=== PATIENT | male | born 1935 | race Caucasian/White ===

== ENCOUNTER 2023-11-07 22:45 | Inpatient (IN) | payer OTHER ==
[~2023-11-07] VITALS: Ht 177.8 cm; Wt 58.0 kg
[2023-11-07 23:26] LABS: Albumin, Blood 2.9 g/dL (3.4-5.0); Albumin/Globulin Ratio 1.2 (0.8-1.8); Bilirubin, Total 5.6 mg/dL (0.1-1.0); Bun/Creatinine Ratio 31.7 (12.0-20.0); Calcium, Blood 7.3 mg/dL (8.5-10.1); Creatinine, Blood 1.39 mg/dL (0.60-1.20); Globulin, Blood 2.5 g/dL (2.2-4.0); Potassium, Blood 2.8 mmol/L (3.5-5.5); Total Protein, Blood 5.4 g/dL (6.4-8.2)
[2023-11-07] MEDS ORDERED: Potassium Chloride 20 MEQ TabCR PO ONE (23:45)
[2023-11-07] MEDS ORDERED: NS 1,000 ML IV SCH (23:50)
[2023-11-07] MEDS ORDERED: Potassium Chl 20MEQ/Water100ML 100 ML IV ONE (23:50)
[2023-11-08] VITALS (13 sets, daily range): BP systolic 89–118; BP diastolic 51–64
[2023-11-08 00:16] LABS: Magnesium, Blood 2.1 mg/dL (1.6-2.4)
[2023-11-08 00:51] LABS: Hematocrit 19.1 % (37.0-53.0); Hemoglobin 6.2 g/dL (13.5-17.5); Mean Corpuscular HGB 29.5 pg (26.0-34.0); Mean Corpuscular HGB Conc 32.5 g/dL (31.5-36.5); Mean Corpuscular Volume 91 fL (80-100); RDW Coefficient Variation 18.3 % (11.7-14.2); RDW Standard Deviation 58.5 fL (35.1-46.3)
[2023-11-08 01:00] LABS: Thyroid Stimulating Hormone 1.91 uIU/mL (0.360-4.800)
[2023-11-08 01:06] LABS: NRBC ABSOLUTE 0.74 K/mm3 (0.00-0.02); NRBC Auto 1.7 /100 WBC (0.0-0.2); White Blood Cell Count 43.35 K/mm3 (4.00-11.30)
[2023-11-08 01:08] LABS: Platelet Count 11 K/mm3 (150-400)
[2023-11-08 01:08] LABS: Influenza A, PCR NEGATIVE (NEGATIVE); Influenza B, PCR NEGATIVE (NEGATIVE); Resp Syncytial Virus, PCR NEGATIVE (NEGATIVE); SARS-Cov-2 (COVID-19) PCR, MMC NEGATIVE (NEGATIVE)
[2023-11-08 01:47] LABS: BAND PERCENT MAN 1 % (0-8); BASOPHILS PERCENT MAN 0 % (0-2); BLASTS PERCENT MAN 25 % (0-0); EOSINOPHILS PERCENT MAN 0 % (0-6); LYMPHOCYTES % ATYPICAL MANUAL 3 % (0-0); LYMPHOCYTES PERCENT MAN 9 % (21-46); METAMYELOCYTE ABSOLUTE MAN 3.03 K/mm3 (0.00-0.00); METAMYELOCYTE PERCENT MAN 7 % (0-0); MONOCYTES PERCENT MAN 21 % (4-13); MYELOCYTE ABSOLUTE MAN 6.93 K/mm3 (0.00-0.00); MYELOCYTE PERCENT MAN 16 % (0-0); PROMYELOCYTE ABSOLUTE MAN 0.43 K/mm3 (0.00-0.00); PROMYELOCYTE PERCENT MAN 1 % (0-0); SEG NEUTROPHILS PERCENT MAN 17 % (41-73); TOTAL CELLS COUNTED 100
[2023-11-08] MEDS ORDERED: NS 500 ML IV SCH (03:10)
[2023-11-08] MEDS ORDERED: Lactated Ringer's 1,000 ML IV SCH (04:00)
[2023-11-08] MEDS ORDERED: OLANZapine 10 MG Vial IV ONE (07:30)
[2023-11-08 08:16] LABS: Hematocrit 22.7 % (37.0-53.0); Hemoglobin 7.4 g/dL (13.5-17.5); Mean Corpuscular HGB 29.4 pg (26.0-34.0); Mean Corpuscular HGB Conc 32.6 g/dL (31.5-36.5); Mean Corpuscular Volume 90 fL (80-100); RDW Coefficient Variation 17.7 % (11.7-14.2); RDW Standard Deviation 56.1 fL (35.1-46.3); Red Blood Cell Count 2.52 M/mm3 (4.30-5.90)
[2023-11-08 08:25] LABS: NRBC ABSOLUTE 0.99 K/mm3 (0.00-0.02)
[2023-11-08 08:27] LABS: Albumin, Blood 2.7 g/dL (3.4-5.0); Anion Gap 13 mmol/L (3-11); Blood Urea Nitrogen 44 mg/dL (8-24); Bun/Creatinine Ratio 32.6 (12.0-20.0); CO2, Blood 26 mmol/L (21-32); Chloride, Blood 104 mmol/L (98-108); Creatinine, Blood 1.35 mg/dL (0.60-1.20); Glomerular Filtration Rate 51 (60-); Glucose, Blood 118 mg/dL (70-99); Phosphorus, Blood 4.8 mg/dL (2.5-4.9); Potassium, Blood 3.1 mmol/L (3.5-5.5); Sodium, Blood 140 mmol/L (136-145)
[2023-11-08 08:29] LABS: Platelet Count 17 K/mm3 (150-400)
[2023-11-08] MEDS ORDERED: Enoxaparin 40 MG/0.4 ML SYR SC SCH (09:00)
[2023-11-08 09:29] LABS: BAND PERCENT MAN 7 % (0-8); BASOPHILS PERCENT MAN 0 % (0-2); BLASTS PERCENT MAN 24 % (0-0); EOSINOPHILS PERCENT MAN 0 % (0-6); LYMPHOCYTES ABSOLUTE MAN 1.99 K/mm3 (0.84-5.20); LYMPHOCYTES PERCENT MAN 4 % (21-46); METAMYELOCYTE ABSOLUTE MAN 0.99 K/mm3 (0.00-0.00); METAMYELOCYTE PERCENT MAN 2 % (0-0); MONOCYTES ABSOLUTE MAN 16.93 K/mm3 (0.16-1.47); MONOCYTES PERCENT MAN 34 % (4-13); MYELOCYTE ABSOLUTE MAN 7.96 K/mm3 (0.00-0.00); MYELOCYTE PERCENT MAN 16 % (0-0); NEUTROPHILS ABSOLUTE MAN 9.46 K/mm3 (1.96-9.15); PROMYELOCYTE ABSOLUTE MAN 0.49 K/mm3 (0.00-0.00); PROMYELOCYTE PERCENT MAN 1 % (0-0); SEG NEUTROPHILS PERCENT MAN 12 % (41-73); TOTAL CELLS COUNTED 100
[2023-11-08] MEDS ORDERED: Potassium Chloride 40 MEQ in NS 250 ML IV ONE (09:35)
[2023-11-08] MEDS ORDERED: OLANZapine ODT 5 MG Tab MM PRN (15:40)
--- NOTE | 2023-11-08 17:34 | NUR ---
SHIFT SUMMARY: PT IS AN A&OX2-3 MALE HERE FOR ANEMIA; RECEIVING BLOOD PRODUCTS. HE CAME TO ME THIS MORNING FROM THE FLOOR AFTER HE DISPLAYED AGGRESSIVE BEHAVIOR WITH STAFF. WHEN PATIENT ARRIVED TO THE SPECIAL CARE UNIT HE WAS CALM AND REMAINED CALM, PLEASANT, AND COOPERATIVE THE ENTIRE SHIFT. HE HASN'T BEEN IMPULISVE OR TRYING TO GET OUT OF BED; AVASURE CAMERA IN USE. PATIENT CONFUSES, FLIGHTS OF IDEAS, CAN RECALL CURRENT EVENTS; PEOPLE. HE VOICES UNDERSTANDING WITH HIS CARE. HAD A LONG DISCUSSING WITH HIM AND HIS CAREGIVER TJ THAT CAME BY THIS AFTERNOON ABOUT THE PATIENTS CONDITION. PATIENT DOES LIVE ALONE IN AN APARTMENT; CAREGIVER TJ THROUGH [facility] ASSISTS WITH THE PATIENT'S NEEDS. PATIENT DOES HAVE LACK OF MOBILITY; HE CANNOT/WILL NOT BEND AT HIS HIP ON THE L SIDE. PATIENT GETS AROUD WITH A 4 WHEEL WALKER AT HOME, BUT WITH WORKING WITH THE PATIENT TODAY AND ASSISTING HIM TO THE BEDSIDE COMMODE TODAY IT TAKES MAXIMUM 2-3 EFFORTS TO GET HIM UP AND ON THE COMMODE; AGAIN HE DOESN'T BEND AT THE HIP SO HE DOES NOT SIT; HE LEANS BACK AND KEEPS HIS L LEG STRAIGHT WHICH IS UNSAFE. DISCUSSED AND CAME TO AN UNDERSTANDING WITH THE PATIENT AND CAREGIVER THAT STAYING IN BED IS SAFEST AT THIS TIME; FALL RISK+CRITICALLY LOW PLTS. PATIENT ALSO EXPRESSES THAT HE DOES NOT WISH TO CONTINUE GETTING BLOOD TRANSFUSIONS. HE WISHES TO NATURALLY. PATIENT RECEIVED 2 UNITS OF PRBC TODAY, 1000ML OF LR, AND IV POTASSIUM CHLORIDE;TOLERATED WELL. HE IS IN BED, CALL LIGHT WITHIN REACH, NO SIGNS OR SYMPTOMS OF DISTRESS, PLAN OF CARE ONGOING.
[2023-11-09 02:47] VITALS: BP 99/53
--- NOTE | 2023-11-09 05:15 | NUR ---
SHIFT SUMMARY PATIENT IS STUBBORN AT TIMES AND OTHER TIMES EASILY DIRECTABLE. STILL UNABLE TO GET THE BED WEIGHT ZEORED, HE STANDS FOR NOT LONG ENOUGH. HE REFUSED THE PRN ZYPREXA I OFFERED AT HS.
[2023-11-09 06:37] LABS: Hematocrit 23.7 % (37.0-53.0); Hemoglobin 7.9 g/dL (13.5-17.5); Mean Corpuscular HGB Conc 33.3 g/dL (31.5-36.5); Mean Corpuscular Volume 90 fL (80-100); RDW Coefficient Variation 17.5 % (11.7-14.2); RDW Standard Deviation 55.8 fL (35.1-46.3); RETICULOCYTE ABSOLUTE 0.0921 M/mm3 (0.0200-0.1100); Red Blood Cell Count 2.63 M/mm3 (4.30-5.90)
[2023-11-09 06:55] LABS: NRBC ABSOLUTE 1.15 K/mm3 (0.00-0.02); NRBC Auto 2.5 /100 WBC (0.0-0.2); White Blood Cell Count 45.19 K/mm3 (4.00-11.30)
[2023-11-09 06:57] LABS: Platelet Count 15 K/mm3 (150-400)
[2023-11-09 07:06] LABS: Albumin, Blood 2.6 g/dL (3.4-5.0); Bilirubin, Total 5.1 mg/dL (0.1-1.0); Bun/Creatinine Ratio 29.9 (12.0-20.0); Calcium, Blood 7.6 mg/dL (8.5-10.1); Creatinine, Blood 1.37 mg/dL (0.60-1.20); Globulin, Blood 2.6 g/dL (2.2-4.0); Potassium, Blood 3.4 mmol/L (3.5-5.5); Total Protein, Blood 5.2 g/dL (6.4-8.2)
[2023-11-09 07:48] VITALS: BP 112/59
[2023-11-09 08:11] LABS: BAND PERCENT MAN 4 % (0-8); BASOPHILS PERCENT MAN 0 % (0-2); BLASTS PERCENT MAN 18 % (0-0); EOSINOPHILS PERCENT MAN 0 % (0-6); LYMPHOCYTES ABSOLUTE MAN 9.94 K/mm3 (0.84-5.20); LYMPHOCYTES PERCENT MAN 22 % (21-46); METAMYELOCYTE ABSOLUTE MAN 1.35 K/mm3 (0.00-0.00); METAMYELOCYTE PERCENT MAN 3 % (0-0); MONOCYTES ABSOLUTE MAN 6.77 K/mm3 (0.16-1.47); MONOCYTES PERCENT MAN 15 % (4-13); MYELOCYTE ABSOLUTE MAN 6.77 K/mm3 (0.00-0.00); MYELOCYTE PERCENT MAN 15 % (0-0); SEG NEUTROPHILS PERCENT MAN 23 % (41-73); TOTAL CELLS COUNTED 100
[2023-11-09] MEDS ORDERED: Potassium Chl 20MEQ/Water100ML 100 ML IV STA (08:16)
[2023-11-09 15:18] VITALS: BP 124/59
[2023-11-09] MEDS ORDERED: Acetaminophen 650 MG Supp PR PRN (18:05)
[2023-11-09] MEDS ORDERED: Morphine Sulfate 20 MG/1ML 1 ML Oral Syringe SL PRN ×2 (18:05→20:40)
[2023-11-09] MEDS ORDERED: Atropine Sulfate 1% Opth Soln 2ML BTL SL PRN (18:05)
[2023-11-09] MEDS ORDERED: LORazepam 1 MG Tab PO PRN (18:05)
[2023-11-09] MEDS ORDERED: Scopolamine Hydrobromide Patch TOP PRN (18:05)
--- NOTE | 2023-11-09 18:10 | NUR ---
GOALS OF CARE - STATUS CHANGE TO COMFORT CARE MET WITH PT, WHOM LIKES TO BE ADDRESSED "ALEJANDRA" AND HIS CAREGIVER TJ. PT LYING CORNER TO CORNER IN HOSPITAL BED AT 45 DEGREE ANGLE. ALEJANDRA IS ALERT, ORIENTED TO SELF, CAREGIVER AND BEING IN THE HOSPITAL. HE IS ENGAGING IN CONVERSATION WITH RELEVANT INPUT. PT REQUESTS HOSPICE CARE AND WANTS TO START IT "NOW". ALEJANDRA STATED, "I'M ALEVISM. I KNOW WHERE I'M GOING. I KNOW DAVID. I'M NOT AFRAID TO ." PT TALKED ABOUT HIS TIME IN THE [employer] AND THE [employer]. "MY TIME IN THE [employer] WAS MY [employer]. 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 [employer] REPORTS ALEJANDRA IS VERY RIGID IN HIS ROUTINE AT HOME. HE DOES NOT BELIEVE IN MEDICATIONS OR CHEMICALS. CLEANING AT HOME IS DONE WITH WATER ONLY, EXCEPT DISHES, USES DISHSOAP. ALEJANDRA CONFIRMS CLEANING INSTRUCTIONS. PRIOR TO ADMISSION, PT AMBULATED WITH A WALKER. CG REPORTS FATIGUE GREATLY INCREASED THE LAST COUPLE OF MONTHS. [employer] SHOPPING 2 MTS AGO WOULD TAKE APX 1-2 HRS. COUPLE OF WEEKS AGO, SHOPPING WAS GREATER THAN 3 HRS. ORAL INTAKE HAS STEADILY DECLINED. LAST FULL MEAL WAS GREATER THAN 2 MTS AGO. 1 MTH AGO ORAL INTAKE APX 40-50%. ALEJANDRA STATED HE WOULD LIKE TJ TO BE HIS DECESION MAKER WHEN HE IS NOT ABLE TO SPEAK FOR HIMSELF. HE TOLD TJ AND THIS PC RN, HE WANTS HIS "FLUSH MY ASHES DOWN THE TOILET. IT ALL GOES TO THE SEWERS ANYWAY. THE OCEAN IS THE LARGEST HIDE SALTER THERE IS. DON'T PUT ME IN A VASE AND KEEP ME FOREVER. THAT'S NOT ME. WHEN I'M IT'S JUST A BODY." THIS PC RN UPDATED DR. REDDY AND DR. TAYLOR ABOUT VISIT WITH PT STATED ABOVE. ORDERS RCV'D TO START COMFORT CARE. MARYCARMEN CRISTOBAL NOTIFIED BY PHONE OF REQ TO D/C TO [facility]. PRIMARY RN UPDATED WITH ABOVE STATED INFO. PC TO REMAIN AVAILABLE NEEDED.
--- NOTE | 2023-11-09 18:50 | NUR ---
SHIFT SUMMARY: PATIENT HAS BEEN PLEASANT AND COOPEARTIVE WITH CARE; HASN'T ATTEMPTED ANY OUT OF BED SAFETY; BEEN MAKING NEEDS KNOWN. NOT EATING AND DRINKING VERY LITTLE. VISITED ROHINI EASTON WITH HIS LABOR ECONOMICS TEACHER TODAY AND DECIDED TO PLACE HIM ON HOSPICE/COMFORT CARE. HE IS SLEEPING-RESP EVEN AND UNLABORED;LYING ON R SIDE;CONDOM CATH IN PLACE, CALL LIGHT WITHIN REACH, BED ALARM ON AND CAMERA GOING. NO SIGNS OR SYMPTOMS OF DISTRESS, PLAN OF CARE ONGOING. PHARMACY CALLED REGARDING CONCERNS WITH ROXANOL DOSING STARTING AT 5MG-20MG; EXPRESSED TO THE PHARMACIST THE IT IS INITATED FOR COMFORT CARE AND THAT STARTING AT 5 MG AND SEEING HOW PATIENT RESPONSES TO DOSING IS FOLLOWED AND ADJUST NEEDED. SHE STATES THAT PER PALLATIVE COMFORT MEASURES FOR OPIATE NIAVE PATIENT THE STARTING DOSE WOULD BE 2MG; I SHARED THAT I HAVE NEVER GIVEN A 2 MG DOSE OF ROXANOL ON A COMFORT CARE PATIENT BEFORE AND THAT TYPICALLY COMFORT CARE ROXANOL PROTOCOL DOSING STARTS AT 5MG. PHARMACIST EXPRESSES THAT THEY DO NOT FEEL COMFORTABLE WITH THAT DOSING; I ADVISED THE PHARMACIST TO CALL THE DOCTOR/PALLATIVE CARE RN TO DISCUSS CONCERNS IF THEY DO NOT FEEL COMFORTABLE WITH ORDERED DOSING.
--- NOTE | 2023-11-10 06:33 | NUR ---
SHIFT SUMMARY PATIENT WAS ABLE TO SLEEP MOST OF THE NIGHT. HE DENIED NEEDING ANY PRN MEDS. CONDOM CATH WORKED WELL.
[2023-11-10] MEDS ORDERED: Morphine Sulfate 20 MG/1ML 1 ML Oral Syringe SL PRN (13:10)
--- NOTE | 2023-11-10 18:51 | NUR ---
SUMMARY- PT A/O X3, FOLLOWS COMMANDS. NO ATTEMPTS TO GET OOB UNATENDED. DC'D RETAIL SECURITY PROFESSIONAL. MEDICATED X2 WITH ROXONOL FOR NECK PAIN WITH GOOD EFFECT. PT DRINGING WATER, VOIDS USING CONDOM CATH. IRRITABLE AT TIMES. [facility]. WILL REPORT TO NOC RN
--- NOTE | 2023-11-11 04:54 | NUR ---
SHIFT SUMMARY PATIENT SLEPT MOST OF THIS SHIFT, DID NOT REQUEST ANY PRN MEDS. HELP REPOSTION AND CONDOM CATH WORKING WELL
--- NOTE | 2023-11-11 17:40 | NUR ---
SHIFT SUMMARY A&OX2-3, COOPERATIVE, ANXIOUS AT TIMES. DENIED ANY CP/PRESSURE, HEADACHE, DIZZINESS OR SOB. DENIED NEED FOR PAIN MEDS DURING THE SHIFT. LSCTA. NO ACUTE EVENTS. VISITOR AT BEDSIDE DURING THE AFTERNOON. REPOSITIONED Q2 HRS. CURRENTLY EATING DINNER. BED IN THE LOWEST POSITION. CALL LIGHT WITHIN REACH.
--- NOTE | 2023-11-11 23:00 | NUR ---
PRIMARY NURSE HOME SICK-THIS RN TO ASSUME CARE.
--- NOTE | 2023-11-12 05:15 | NUR ---
SHIFT SUMMARY. PATIENT IS A&OX2-3. PATIENT IS COOPERATIVE WITH CARE WITH EPISODES OF ANXIOUSNESS. PATIENT REPOSITIONED AND CHANGED HE WOULD ALLOW. PATIENT DENIED FLUIDS. PATIENT SLEPT OFF AND ON T/O NIGHT WITH RESPIRATIONS EQUAL AND UNLABORED. BED IS LOCKED IN THE LOWEST POSITION WITH CALL LIGHT IN REACH. PATIENTS IV IN RIGHT FOREARM INFILTRATED-RED, SWOLLEN AND TENDER-IV REMOVED; NO IV NEEDED IS ORDERED. PATIENT NOT USING CALL LIGHT THIS SHIFT. BED IS LOCKED IN THE LOWEST POSITION WITH CALL LIGHT IN REACH. BED EXIT ALARM ENGAGED FOR PATIENT SAFETY. CARE IS ONGOING.
[2023-11-12] MEDS ORDERED: ATROPINE SULFATE2 M1 SL (11:48)
[2023-11-12] MEDS ORDERED: ACEPHEN PR (11:48)
[2023-11-12] MEDS ORDERED: Ativan1 MG PO (11:49)
[2023-11-12] MEDS ORDERED: MORP20L SL (11:50)
[2023-11-12] MEDS ORDERED: TRANSDERM-SCOP1 EA13 TD (11:50)
[2023-11-12 11:56] LABS: SARS-Cov-2 (COVID-19) PCR, MMC NEGATIVE (NEGATIVE)
--- NOTE | 2023-11-12 12:16 | NUR ---
REPORT GIVEN TO BANDAR AT [facility].
--- NOTE | 2023-11-12 13:24 | NUR ---
DISCHARGE SUMMARY: PT DISCHARGED TO [facility] TODAY. PT PICKED UP VIA GURNEY TRANSPORT WITH [facility]. ASSISTED PT WITH GETTING READY, BELONGINGS PACKED UP AND SENT WITH PT. CONDOM CATH LEFT IN PLACE PER REQUEST. PT PERSONAL WALKER SENT WITH DALILA SPENCER WHO WAS PESENT AT THE TIME AND STATED SHE WOULD TAKE IT TO [facility] THE [facility].
== END 2023-11-12 13:20 | disposition hospice, home (50) | DRG 841 ==
LOC: ER 22:45 → MEDS 22:46 → ENPENDDIS 11-12 11:52 → MEDS 11-12 13:20
PROVIDERS: Emergency Medicine; Family Medicine; Student in an Organized Health Care Education/Training Program; ADMIT Student in an Organized Health Care Education/Training Program
PROC: 30233N1 Transfusion of Nonautologous Red Blood Cells into Peripheral Vein, Percutaneous Approach (ICD-10-PCS; principal; 2023-11-08)
DX: C91.10 Chronic lymphocytic leukemia of B-cell type not having achieved remission (principal); R64 Cachexia; I12.9 Hypertensive chronic kidney disease with stage 1 through stage 4 chronic kidney disease, or unspecified chronic kidney disease; N18.30 Chronic kidney disease, stage 3 unspecified; F03.90 Unspecified dementia, unspecified severity, without behavioral disturbance, psychotic disturbance, mood disturbance, and anxiety; E87.6 Hypokalemia; Z66 Do not resuscitate; Z51.5 Encounter for palliative care; D47.2 Monoclonal gammopathy; D63.1 Anemia in chronic kidney disease; D69.6 Thrombocytopenia, unspecified; N40.0 Benign prostatic hyperplasia without lower urinary tract symptoms; E55.9 Vitamin D deficiency, unspecified; Z87.891 Personal history of nicotine dependence; R91.1 Solitary pulmonary nodule; Z68.23 Body mass index [BMI] 23.0-23.9, adult
CPT/HCPCS: 0241U; 36415; 36430; 70450; 71046; 71260; 74177; 80053; 80069; 82272; 82330; 82947; 83735; 84443; 84484; 85025; 85045; 85060; 86850; 86900; 86901; 86923; 92610; 93005; 93010; 96365; 96366; 96376; 99285-25; A9270; G0378; J3480; J7030; J7040; J7050; J7120; P9016; Q9967; U0002